=== PATIENT | female | born 1945 | race Caucasian/White ===

== ENCOUNTER 2016-11-17 15:15 | Emergency (ER) | payer MEDICARE, OTHER ==
[2016-11-17 15:24] VITALS: BP 107/79
--- NOTE | 2016-11-17 15:46 | UC ---
Skin Complaint HPI - HPI Summary HPI Summary: Pt presents with c/o of "infected" right index finger nail bed. Pt reports that infection began a "few days ago" and she has been applying antibiotic ointment to affected area with no improvement. denies fever, chills, or red streaking - History of Current Complaint Chief Complaint: UCUpperExtremity Time Seen by Provider: 11/17/16 15:22 Stated Complaint: RIGHT INDEX FINGER REDNESS/PAIN Hx Obtained From: Patient ?: No Onset/Duration: Gradual Onset, Lasting Days, Still Present, Worse Since - first onset Skin Exposure Onset/Duration: Days Ago Timing: Constant Onset Severity: Mild Current Severity: Mild Location: Discrete, Hand (Right) - index finger Character: Swelling, Pain, Redness Aggravating: Touch Alleviating: Unknown Associated Signs & Symptoms: Positive: Tenderness - Allergy/Home Medications Allergies/Adverse Reactions: Allergies Allergy/AdvReac Type Severity Reaction Status Date / Time Sulfa Antibiotics Allergy Hives Verified 11/17/16 15:24 Review of Systems Constitutional: Negative Skin: Other - paronychia right medial aspect nail bed Eyes: Negative ENT: Negative Respiratory: Negative Cardiovascular: Negative Gastrointestinal: Negative Genitourinary: Negative Motor: Negative Neurovascular: Negative Musculoskeletal: Edema - distal end of right index finger medial aspect of nail bed Neurological: Negative Psychological: Negative All Other Systems Reviewed And Are Negative: Yes PMH/Surg Hx/FS Hx/Imm Hx Previously Healthy: Yes Other History Of: Anticoagulant Therapy - Surgical History Surgical History: Yes Surgery Procedure, Year, 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 - Family History Known Family History: Positive: Other - dad had thrombopbelitis - Social History Occupation: Retired Lives: With Family Alcohol Use: None Substance Use Type: None Smoking Status (MU): Never Smoked Tobacco Have You Smoked in the Last Year: No Household Exposure Type: Cigarettes - Immunization History Most Recent Influenza Vaccination: no Most Recent Tetanus Shot: within 10 years Physical Exam Triage Information Reviewed: Yes Appearance: Well-Appearing Vital Signs: Initial Vital Signs Temp 98.4 F 11/17/16 15:20 Pulse 82 11/17/16 15:20 Resp 14 11/17/16 15:20 BP 107/79 11/17/16 15:20 Pulse Ox 97 11/17/16 15:20 Vital Signs Reviewed: Yes Eye Exam: Normal ENT Exam: Normal Respiratory Exam: Other Respiratory: Positive: No respiratory distress Musculoskeletal Exam: Normal Musculoskeletal: Positive: Edema @ - right medial nail bed Neurological Exam: Normal Psychological Exam: Normal Skin Exam: Other - paronychia right medial aspect of nail bed Course/Dx - Differential Diagnoses - Skin Complaint Differential Diagnoses: Cellulitis - Diagnoses Provider Diagnoses: paronychia right index finger Procedures - Incision and Drainage Site: right index finger medial aspect Instrument(s): Scalpel - 11 blade, small amount of purulent drainage, wound cleansed immediately after incision, pt tolerated procedure well. Discharge - Discharge Plan Condition: Stable Disposition: HOME Patient Education Materials: Paronychia (ED), Acute Wound Care (ED) Referrals: Tom Nieves MD [Primary Care Provider] - If Needed Additional Instructions: Please follow up with your PCP or return to clinic as needed.
== END 2016-11-17 15:55 | disposition home or self-care (01) ==
LOC: UCCORT 15:15
DX: L03.011 Cellulitis of right finger (principal)
CPT/HCPCS: 10060; 99211; G0463

== ENCOUNTER 2018-07-28 13:58 | Emergency (ER) | payer MEDICARE, OTHER ==
[2018-07-28 14:13] VITALS: BP 113/79
--- NOTE | 2018-07-28 14:43 | UC ---
Complaint Female HPI - HPI Summary HPI Summary: 72-year-old woman comes in with a chief complaint of dysuria for the last 2 days. Also feels urgency. History is worse when she urinates as bad when she' s not urinating. Denies any fevers or chills denies any flank pain. Feeling well otherwise. 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 - Family History Known Family History: Positive: Other - dad had thrombopbelitis - Social History Alcohol Use: None Substance Use Type: None Smoking Status (MU): Never Smoked Tobacco Have You Smoked in the Last Year: No Household Exposure Type: Cigarettes - Immunization History Most Recent Influenza Vaccination: no Most Recent Tetanus Shot: within 10 years Review of Systems All Other Systems Reviewed And Are Negative: Yes Constitutional: Positive: Negative Skin: Positive: Negative Eyes: Positive: Negative ENT: Positive: Negative Respiratory: Positive: Negative, Shortness Of Breath Gastrointestinal: Positive: Negative Genitourinary: Positive: Dysuria, Frequency, Urgency Motor: Positive: Negative Neurovascular: Positive: Negative Musculoskeletal: Positive: Negative Neurological: Positive: Negative Psychological: Positive: Negative Is Patient Immunocompromised?: No Physical Exam Triage Information Reviewed: Yes Appearance: Well-Appearing, No Pain Distress, Well-Nourished Vital Signs: Initial Vital Signs Temp 99.2 F 07/28/18 14:08 Pulse 71 07/28/18 14:08 Resp 18 07/28/18 14:08 BP 113/79 07/28/18 14:08 Pulse Ox 97 07/28/18 14:08 Vital Signs Reviewed: Yes Eye Exam: Normal Eyes: Positive: Conjunctiva Clear Neck: Positive: Supple Cardiovascular: Positive: RRR Abdomen Description: Positive: Nontender, Soft. Negative: CVA Tenderness (R), CVA Tenderness (L) Musculoskeletal Exam: Normal Musculoskeletal: Positive: Strength Intact, ROM Intact Neurological Exam: Normal Neurological: Positive: Alert, Muscle Tone Normal Psychological Exam: Normal Psychological: Positive: Age Appropriate Behavior Skin Exam: Normal Complaint Female Dx - Differential Dx/Diagnosis Provider Diagnosis: UTI (urinary tract infection) Discharge - Sign-Out/Discharge Documenting (check all that apply): Patient Departure All imaging exams completed and their final reports reviewed: No Studies - Discharge Plan Condition: Stable Disposition: HOME Prescriptions: Nitrofurantoin Monohyd/M-Cryst [Macrobid 100 mg Capsule] 100 mg PO BID #14 cap Patient Education Materials: Urinary Tract Infection in Women (ED) Referrals: Tom Nieves MD [Primary Care Provider] - Additional Instructions: FOLLOW UP WITH YOUR DOCTOR IF NOT COMPLETELY IMPROVED. GET RECHECKED SOONER IF YOUR CONDITION WORSENS OR ANY QUESTIONS OR CONCERNS. - Billing Disposition and Condition Condition: STABLE Disposition: Home
== END 2018-07-28 14:56 | disposition home or self-care (01) ==
LOC: UCCORT 13:58
DX: N39.0 Urinary tract infection, site not specified (principal); E78.5 Hyperlipidemia, unspecified; I10 Essential (primary) hypertension; Z88.2 Allergy status to sulfonamides; Z79.01 Long term (current) use of anticoagulants
CPT/HCPCS: 81003; 87077; 87086; 87186; 99212; G0463

== ENCOUNTER 2018-09-27 15:16 | Emergency (ER) | payer MEDICARE, OTHER ==
[2018-09-27 15:28] VITALS: BP 116/84
[2018-09-27] MEDS ORDERED: Albuterol 2.5 MG/3 ML NEB.SOL* (0.083%) INH ONE (15:37)
--- NOTE | 2018-09-27 15:37 | UC ---
UC General HPI - HPI Summary HPI Summary: pt states head congestion then laryngitis and now a cough with congestion. the head congestion and laryngitis have improved. the cough has continued x 8 days. + subjective fever and chills. no cp. some sob, + hx asthma. - History of Current Complaint Chief Complaint: UCRespiratory Stated Complaint: COUGH Time Seen by Provider: 09/27/18 15:23 Hx Obtained From: Patient Onset/Duration: Gradual Onset Timing: Constant Pain Intensity: 0 Associated Signs & Symptoms: Positive: Cough, SOB. 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 - Family History Known Family History: Positive: Other - dad had thrombopbelitis - Social History Alcohol Use: None Substance Use Type: None Smoking Status (MU): Never Smoked Tobacco Have You Smoked in the Last Year: No Household Exposure Type: Cigarettes - Immunization History Most Recent Influenza Vaccination: no Most Recent Tetanus Shot: within 10 years Review of Systems All Other Systems Reviewed And Are Negative: Yes Constitutional: Positive: Fever, Chills Respiratory: Positive: Shortness Of Breath - mild, Cough Cardiovascular: Negative: Palpitations, Chest Pain Physical Exam Triage Information Reviewed: Yes Appearance: Well-Appearing Vital Signs: Initial Vital Signs Temp 100.5 F 09/27/18 15:24 Pulse 79 09/27/18 15:24 Resp 20 09/27/18 15:24 BP 116/84 09/27/18 15:24 Pulse Ox 97 09/27/18 15:24 Vital Signs Reviewed: Yes Eyes: Positive: Conjunctiva Clear ENT: Positive: Normal ENT inspection Neck: Positive: Supple, Nontender, No Lymphadenopathy, Other: - no JVD Respiratory: Positive: Lungs clear, No accessory muscle use, Decreased breath sounds Cardiovascular: Positive: RRR, No Murmur Abdomen Description: Positive: Nontender Musculoskeletal: Positive: ROM Intact Neurological: Positive: Alert Psychological: Positive: Age Appropriate Behavior Skin Exam: Normal Re-Evaluation - Re-Evaluation First Eval Re-Evaluation Time: 15:52 Change: Improved - much better aeration and clear. pt notes breathing is easier. Course/Dx - Course Course Of Treatment: non toxic. not hypoxic. appropriate for out pt tx. - Differential Dx - Multi-Symptom Differential Diagnoses: Other - ill x 8 days, temp 100.5 and subjective f/c's thus will cover for presumptive bacterial infection and asthma flare - Diagnoses Provider Diagnosis: Asthma flare Discharge - Sign-Out/Discharge Documenting (check all that apply): Patient Departure All imaging exams completed and their final reports reviewed: No Studies - Discharge Plan Condition: Stable Disposition: HOME Prescriptions: Amoxicillin/Clavulanate TAB* [Augmentin TAB 875*] 875 mg PO BID 7 Days #14 tab predniSONE TAB* [Deltasone 20 MG TAB*] 40 mg PO DAILY 3 Days #6 tab Patient Education Materials: Asthma (ED) Referrals: Tom Nieves MD [Primary Care Provider] - 5 Days Additional Instructions: USE YOUR ALBUTEROL INHALER 2 PUFFS EVERY 6 HOURS. - Billing Disposition and Condition Condition: STABLE Disposition: Home
== END 2018-09-27 16:02 | disposition home or self-care (01) ==
LOC: UCCORT 15:16
DX: J45.909 Unspecified asthma, uncomplicated (principal); Z86.711 Personal history of pulmonary embolism; Z86.718 Personal history of other venous thrombosis and embolism; Z79.01 Long term (current) use of anticoagulants
CPT/HCPCS: 99212; G0463

== ENCOUNTER 2020-08-04 15:38 | Inpatient (IN) ==
[~2020-08-04 15:38] MED LIST: Succinylcholine 200 mg VIAL 20 mg/ml 10 ml VIAL (200 mg) ONE
[2020-08-04] MEDS ORDERED: Heparin - STEMI 5,000 UNITS/ML 1 ml VIAL IV ONE (15:39)
[2020-08-04] MEDS ORDERED: Etomidate 40 mg/20 ml (2 MG/ML) 20 ml VIAL (40 mg) ONE (15:50)
[2020-08-04 16:03] LABS: ABS Basophils 0.2 10^3/ul (0-0.2); ABS Lymphocytes 1.5 10^3/ul (1.0-4.8); ABS Monocytes 1.4 10^3/ul (0-0.8); ABS Neutrophils 20.8 10^3/ul (1.5-7.7); ABS Nucleated RBC 0.1 10^3/ul; Eosinophil % 0.1 %; Hematocrit 20 % (35-47); Hemoglobin 5.7 g/dL (12.0-16.0); Lymphocyte % 6.3 %; Mean Corpuscular HGB Conc 28 g/dL (31-36); Mean Corpuscular Hemoglobin 22 pg (27-31); Mean Corpuscular Volume 77 fL (80-97); Mean Platelet Volume 7.1 fL (7.4-10.4); Nucleated Red Blood Cells % 0.5; Platelet Count 334 10^3/uL (150-450); Red Blood Count 2.63 10^6 /uL (3.70-4.87); Red Cell Distribution Width 22 % (10-15); White Blood Count 23.9 10^3/uL (3.5-10.8)
[2020-08-04 16:09] LABS: ALT 25 U/L (7-52); AST 67 U/L (13-39); Albumin 1.9 g/dL (3.2-5.2); Albumin/Globulin Ratio 0.8 (1-3); Alkaline Phosphatase 78 U/L (35-149); Anion Gap 17 mmol/L (2-11); Blood Urea Nitrogen 14 mg/dL (6-24); CO2 Carbon Dioxide 16 mmol/L (22-32); Calcium 7.4 mg/dL (8.6-10.3); Chloride 107 mmol/L (101-111); Creatine Kinase 180 U/L (10-223); EGFR African American 72.4 (>60); EGFR Non-African American 59.8 (>60); Globulin 2.5 g/dL (2-4); Glucose 159 mg/dL (70-100); LDL Cholesterol Direct 58 mg/dL; Potassium 3.8 mmol/L (3.5-5.0); Sodium 140 mmol/L (135-145); Total Protein 4.4 g/dL (6.4-8.9)
[2020-08-04] MEDS ORDERED: Phytonadione IV (Adult) 10 MG in NS 0.9% 50 ML 50 ML IV ONE (16:10)
[2020-08-04 16:13] LABS: CKMB ng/mL 8.2 ng/mL (0.6-6.3); Troponin I 0.23 ng/mL (<0.03)
[2020-08-04] MEDS ORDERED: Propofol 10 mg/ml 100 ML BTL 100 ML IV ONE (16:17)
[2020-08-04] MEDS ORDERED: Piperacillin/Tazobac ADVAN 3.375 GM in NS 0.9% 100 ml BAG 100 ML IV ONE (16:19)
[2020-08-04] MEDS ORDERED: Vancomycin 1,250 MG in NS 0.9% 250 ml 250 ML IVPB ONE (16:19)
[2020-08-04 16:26] LABS: INR 1.43 (0.82-1.09)
[2020-08-04] MEDS ORDERED: Octreotide Acetate 50 MCG in NS 0.9% 50 ML 50 ML IV ONE (16:35)
[2020-08-04 16:50] LABS: Polychromasia 1+; Schistocytes 1+
[2020-08-04 16:51] LABS: Acanthocytes 1+
[2020-08-04] MEDS ORDERED: Pantoprazole 80 mg in NS BAG 80 MG/250 ML BAG IV ONE (17:00)
[2020-08-04] MEDS ORDERED: Octreotide Acetate 500 MCG in NS 0.9% 100 ML IV ONE (17:15)
[2020-08-04] MEDS ORDERED: NORMOSOL-R pH 7.4 1000 mL BAG 1,000 ML IV SCH (18:00)
[2020-08-04 18:35] LABS: TSH Ultra Thyroid Stim Horm 3.96 mcIU/mL (0.34-5.60)
[2020-08-04] MEDS: Amiodarone 360 MG IVPREMIX 360 MG/200 ML BAG IV ONE ×2 (19:20→23:05)
[2020-08-04] MEDS: Magnesium Sulfate 2 gm BAG 2 GM/50 ML BAG ONE ×2 (19:23→23:06)
[2020-08-04] MEDS ORDERED: Amiodarone DRIP 150 MG in D5W 100 ML *LOADING DOSE* OVER 10 MIN IV ONE (19:23)
[2020-08-04] MEDS ORDERED: Vancomycin 1000 MG in NS 0.9% 250 ML IVPB ONE (19:30)
[2020-08-04] MEDS: Amiodarone 360 MG IVPREMIX 360 MG/200 ML BAG IV SCH (19:33)
[2020-08-04] MEDS ORDERED: Magnesium Sulfate 2 GM IV (Premix) IVPB ONE (19:33)
[2020-08-04] MEDS: Amiodarone 150 mg IVPREMIX 150 MG/100 ML BAG IV ONE ×2 (19:33→23:06)
[2020-08-04 20:32] LABS: INR 1.51 (0.82-1.09)
[2020-08-04 20:42] LABS: Troponin I 3.68 ng/mL (<0.03)
[2020-08-04 21:57] LABS: Anion Gap 15 mmol/L (2-11); Blood Urea Nitrogen 16 mg/dL (6-24); CO2 Carbon Dioxide 16 mmol/L (22-32); Calcium 7.1 mg/dL (8.6-10.3); Chloride 108 mmol/L (101-111); EGFR African American 78.3 (>60); EGFR Non-African American 64.7 (>60); Glucose 171 mg/dL (70-100); Potassium 4.3 mmol/L (3.5-5.0); Sodium 139 mmol/L (135-145)
[2020-08-04 22:03] LABS: ABS Lymphocytes 0.7 10^3/ul (1.0-4.8); ABS Monocytes 1.6 10^3/ul (0-0.8); ABS Neutrophils 22.2 10^3/ul (1.5-7.7); ABS Nucleated RBC 0.1 10^3/ul; Hematocrit 25 % (35-47); Hemoglobin 7.1 g/dL (12.0-16.0); Mean Corpuscular HGB Conc 29 g/dL (31-36); Mean Corpuscular Hemoglobin 23 pg (27-31); Mean Corpuscular Volume 79 fL (80-97); Nucleated Red Blood Cells % 0.5; Platelet Count 295 10^3/uL (150-450); Red Blood Count 3.16 10^6 /uL (3.70-4.87); Red Cell Distribution Width 21 % (10-15); White Blood Count 24.5 10^3/uL (3.5-10.8)
[2020-08-05] MEDS: Chlorhexidine MOUTHWASH 0.12% 15 ML UDC SWISH SPIT SCH ×6 (00:32→20:13)
[2020-08-05 03:40] LABS: Hematocrit 32 % (35-47); Hemoglobin 10.1 g/dL (12.0-16.0)
[2020-08-05 03:57] LABS: ALT 171 U/L (7-52); AST 529 U/L (13-39); Albumin 2.1 g/dL (3.2-5.2); Albumin/Globulin Ratio 0.8 (1-3); Alkaline Phosphatase 86 U/L (35-149); Anion Gap 13 mmol/L (2-11); Blood Urea Nitrogen 18 mg/dL (6-24); CO2 Carbon Dioxide 18 mmol/L (22-32); Calcium 7.4 mg/dL (8.6-10.3); Chloride 108 mmol/L (101-111); EGFR African American 75.2 (>60); EGFR Non-African American 62.2 (>60); Globulin 2.7 g/dL (2-4); Glucose 145 mg/dL (70-100); Potassium 3.8 mmol/L (3.5-5.0); Sodium 139 mmol/L (135-145); Total Protein 4.8 g/dL (6.4-8.9)
[2020-08-05] MEDS: Octreotide Acetate 500 MCG in NS 0.9% 100 ML IV SCH ×2 (04:27→14:03)
[2020-08-05] MEDS: Amiodarone 360 MG IVPREMIX 360 MG/200 ML BAG IV SCH (05:55)
[2020-08-05] MEDS: Pantoprazole 80 mg IN NS 80 MG/250 ML BAG IV SCH ×2 (05:56→15:13)
[2020-08-05 06:45] LABS: Urine Appearance Cloudy; Urine Bilirubin Negative (Negative); Urine Blood 2+ (Negative); Urine Color Amber; Urine Glucose Negative (Negative); Urine Ketones Negative (Negative); Urine Nitrite Negative (Negative); Urine Protein 1+(30 mg/dL) (Negative); Urine Specific Gravity 1.025 (1.002-1.030); Urine Urobilinogen Negative (Negative)
[2020-08-05 06:56] LABS: Urine Bacteria Absent (Absent); Urine Granular Casts Present (Absent); Urine Red Blood Cell 3+(>10/hpf) (Absent); Urine White Blood Cell 3+(>20/hpf) (Absent)
[2020-08-05] MEDS ORDERED: Norepinephrine 16MCG/ML IVPRE 4,000 MCG/250 ML BAG IV ONE (07:24)
[2020-08-05 09:41] LABS: Anion Gap 15 mmol/L (2-11); CO2 Carbon Dioxide 15 mmol/L (22-32); Chloride 109 mmol/L (101-111); Potassium 3.7 mmol/L (3.5-5.0); Sodium 139 mmol/L (135-145)
[2020-08-05 09:47] LABS: Blood Urea Nitrogen 19 mg/dL (6-24); EGFR African American 69.8 (>60); EGFR Non-African American 57.7 (>60); Glucose 123 mg/dL (70-100)
[2020-08-05] MEDS ORDERED: DOPamine 800 MG/250 ML IVPREM 800 MG/250 ML ML CENTR SCH ×2 (10:00→14:13)
[2020-08-05] MEDS: cefTRIAXone 1 gm/50 mL NS BAG 1 GM/50 ML BAG IVPB SCH (10:04)
[2020-08-05] MEDS: Amiodarone 400 mg TAB PO SCH ×4 (10:05→20:13)
[2020-08-05] MEDS ORDERED: fentaNYL 100 mcg/2 ml 50 MCG/ML VIAL ONE (10:34)
[2020-08-05] MEDS ORDERED: Midazolam 10 mg/10 ml VIAL 1 mg/ml 10 ml VIAL (10 mg) ONE (10:34)
[2020-08-05] MEDS: DOXYcycline 100 MG in NS 0.9% 250 ml 250 ML IVPB SCH ×2 (11:02→22:32)
[2020-08-05 12:18] LABS: Creatine Kinase 2683 U/L (10-223)
[2020-08-05] MEDS ORDERED: Amiodarone 360 MG IVPREMIX 360 MG/200 ML BAG IV SCH (12:30)
[2020-08-05 12:48] LABS: Magnesium 2.5 mg/dL (1.9-2.7)
[2020-08-05 13:05] LABS: Troponin I 26.11 ng/mL (<0.03)
[2020-08-05 13:07] LABS: ABS Lymphocytes 1.3 10^3/ul (1.0-4.8); ABS Monocytes 1.2 10^3/ul (0-0.8); ABS Nucleated RBC 0.2 10^3/ul; Eosinophil % 0.1 %; Hematocrit 33 % (35-47); Hemoglobin 9.8 g/dL (12.0-16.0); Lymphocyte % 6.4 %; Mean Corpuscular HGB Conc 30 g/dL (31-36); Mean Corpuscular Hemoglobin 25 pg (27-31); Mean Corpuscular Volume 82 fL (80-97); Mean Platelet Volume 8.1 fL (7.4-10.4); Nucleated Red Blood Cells % 0.8; Platelet Count 280 10^3/uL (150-450); Red Blood Count 3.99 10^6 /uL (3.70-4.87); Red Cell Distribution Width 21 % (10-15); White Blood Count 19.5 10^3/uL (3.5-10.8)
[2020-08-05] MEDS: KCL 20 MEQ/100 ML IVPREMIX 20 MEQ/100 ML BAG IV SCH ×2 (14:49→17:37)
[2020-08-05] MEDS ORDERED: levETIRAcetam 1000MG IVPREMIX 1,000 MG/100 ML BAG IVPB ONE (16:30)
[2020-08-05] MEDS: Pantoprazole VIAL 40 MG VIAL IV SCH (16:33)
[2020-08-05 18:14] LABS: Troponin I 23.67 ng/mL (<0.03)
[2020-08-06] MEDS: Chlorhexidine MOUTHWASH 0.12% 15 ML UDC SWISH SPIT SCH ×4 (00:06→14:50)
[2020-08-06] MEDS ORDERED: levETIRAcetam 500 MG IVPREMIX 500 MG/100 ML BAG IV SCH (04:00)
[2020-08-06] MEDS: Pantoprazole VIAL 40 MG VIAL IV SCH (05:06)
[2020-08-06 05:25] LABS: ABS Lymphocytes 0.9 10^3/ul (1.0-4.8); ABS Monocytes 1.3 10^3/ul (0-0.8); ABS Neutrophils 18.2 10^3/ul (1.5-7.7); ABS Nucleated RBC 0.1 10^3/ul; Hematocrit 29 % (35-47); Lymphocyte % 4.5 %; Mean Corpuscular HGB Conc 32 g/dL (31-36); Mean Corpuscular Hemoglobin 25 pg (27-31); Mean Corpuscular Volume 78 fL (80-97); Mean Platelet Volume 8.3 fL (7.4-10.4); Nucleated Red Blood Cells % 0.5; Platelet Count 279 10^3/uL (150-450); Red Blood Count 3.67 10^6 /uL (3.70-4.87); Red Cell Distribution Width 21 % (10-15); White Blood Count 20.4 10^3/uL (3.5-10.8)
[2020-08-06 05:44] LABS: Calcium 6.7 mg/dL (8.6-10.3); EGFR African American 68.1 (>60); EGFR Non-African American 56.3 (>60); Magnesium 2.2 mg/dL (1.9-2.7); Phosphorus 3.6 mg/dL (2.5-5.0)
[2020-08-06] MEDS: cefTRIAXone 1 gm/50 mL NS BAG 1 GM/50 ML BAG IVPB SCH (09:46)
[2020-08-06] MEDS: Amiodarone 400 mg TAB PO SCH (09:46)
[2020-08-06 09:47] LABS: Albumin 1.9 g/dL (3.2-5.2); Albumin/Globulin Ratio 0.7 (1-3); Globulin 2.8 g/dL (2-4); Indirect Bilirubin 0.3 mg/dL (0.3-1.0); Total Bilirubin 0.5 mg/dL (0.2-1.0); Total Protein 4.7 g/dL (6.4-8.9)
[2020-08-06 14:43] VITALS: BP 81/59
[2020-08-06] MEDS: DOXYcycline 100 MG in NS 0.9% 250 ml 250 ML IVPB SCH (14:50)
[2020-08-06] MEDS ORDERED: LORazepam 2 mg VIAL 1 ml IV PUSH PRN (14:52)
[2020-08-06] MEDS ORDERED: Lorazepam PYXIS KEY PRN (14:52)
[2020-08-06] MEDS ORDERED: Morphine 10 MG/ML VIAL (1 ml) IV ONE (14:52)
[2020-08-06] MEDS ORDERED: Morphine 10 MG/ML VIAL (1 ml) IV PRN (14:52)
[2020-08-06] MEDS ORDERED: Morphine 10 MG/ML VIAL (1 ml) ONE (14:55)
[2020-08-06] MEDS ORDERED: LORazepam 2 mg VIAL 1 ml ONE (14:55)
[2020-08-06] MEDS ORDERED: Lorazepam PYXIS KEY ONE (14:55)
== END 2020-08-06 17:13 | disposition expired ==
LOC: ED 15:38 → ICU 16:55
PROVIDERS: ADMIT Internal Medicine; ATTEND Internal Medicine